=== PATIENT | male | born 1990 | race African-American/Black ===

== ENCOUNTER 2022-02-07 20:42 | Emergency (ER) | payer MEDICAID ==
[~2022-02-07] VITALS: Ht 170.2 cm; Wt 80.0 kg
[2022-02-07 22:58] VITALS: BP 112/78
== END 2022-02-07 22:58 | disposition home or self-care (01) ==
LOC: ER 20:42
DX: B34.9 Viral infection, unspecified (principal); U07.1 COVID-19
CPT/HCPCS: 71045; 87426; 87804; 99284; C9803

== ENCOUNTER 2022-09-23 10:14 | Emergency (ER) | payer OTHER ==
[~2022-09-23] VITALS: Ht 172.7 cm; Wt 70.0 kg
[2022-09-23 10:28] VITALS: BP 92/76
[2022-09-23] MEDS ORDERED: HYDR50TA55 PO (15:05)
== END 2022-09-23 16:09 | disposition home or self-care (01) ==
LOC: ER 10:14
DX: F41.9 Anxiety disorder, unspecified (principal); F15.10 Other stimulant abuse, uncomplicated; F90.9 Attention-deficit hyperactivity disorder, unspecified type
CPT/HCPCS: 99283

== ENCOUNTER 2024-09-25 23:45 | Emergency (ER) | payer MEDICAID, OTHER ==
[~2024-09-25] VITALS: Ht 175.3 cm; Wt 65.0 kg
[~2024-09-25 23:45] MED LIST: HYDR50TA55 PO
[2024-09-26 00:24] VITALS: O2SAT 99
[2024-09-26] MEDS ORDERED: TOPUD MT (02:03)
[2024-09-26] MEDS ORDERED: IBUP-2029 MT (02:03)
[2024-09-26] MEDS: KETOROLAC 30MG/ML VIAL IM STA (02:17)
[2024-09-26 02:20] VITALS: BP 108/64; PULSE 87; RESP 17; TEMP 36.8; O2SAT 99
== END 2024-09-26 02:29 | disposition home or self-care (01) ==
LOC: ER 23:53
DX: M25.561 Pain in right knee (principal); Z79.899 Other long term (current) drug therapy; F15.90 Other stimulant use, unspecified, uncomplicated; V09.9XXA Pedestrian injured in unspecified transport accident, initial encounter; Y93.89 Activity, other specified; Y92.89 Other specified places as the place of occurrence of the external cause; Y99.8 Other external cause status
CPT/HCPCS: 99283; 73560; 96372; J1885; Z7610 ×2

== ENCOUNTER 2025-01-18 03:08 | Emergency (ER) | payer MEDICAID ==
[~2025-01-18] VITALS: Ht 170.2 cm; Wt 80.0 kg
[~2025-01-18 03:08] MED LIST changes: +IBUP-2029 MT; +TOPUD MT
[2025-01-18 03:24] VITALS: O2SAT 99
[2025-01-18] MEDS: KETOROLAC 30MG/ML VIAL IM ONE (04:05)
[2025-01-18] MEDS: ACETAMINOPHEN 325MG TABLET PO ONE (04:05)
[2025-01-18] MEDS ORDERED: TRAM50TA3 MT (04:45)
[2025-01-18 05:09] VITALS: BP 141/77; PULSE 105; RESP 20; TEMP 36.9; O2SAT 99
== END 2025-01-18 05:11 | disposition home or self-care (01) ==
LOC: ER 03:55
DX: S62.307A Unspecified fracture of fifth metacarpal bone, left hand, initial encounter for closed fracture (principal); F19.90 Other psychoactive substance use, unspecified, uncomplicated; Z79.899 Other long term (current) drug therapy; X58.XXXA Exposure to other specified factors, initial encounter; Y93.89 Activity, other specified; Y92.89 Other specified places as the place of occurrence of the external cause; Y99.8 Other external cause status
CPT/HCPCS: 99283; 73130; 29125; 96372; J1885